=== PATIENT | female | born 1995 | race Caucasian/White ===

== ENCOUNTER 2024-10-22 16:48 | Outpatient (RCR) | payer OTHER, SELFPAY ==
[2024-10-22 17:55] VITALS: PULSE 85
== END 2025-01-20 23:59 | disposition home or self-care (01) ==
LOC: ANHOBOP 16:48
PROVIDERS: Visit Provider Obstetrics & Gynecology
DX: O36.8190 Decreased fetal movements, unspecified trimester, not applicable or unspecified (principal)
CPT/HCPCS: 59025

== ENCOUNTER 2025-01-10 20:24 | Outpatient (CLI) | payer OTHER, SELFPAY ==
[2025-01-10 21:19] VITALS: BMI 35.2
[2025-01-12 11:19] LABS: Total Protein Urine Random 12 mg/dL
[2025-01-12 11:20] LABS: Creatinine 24 Hour Urine 2.1 gm/24 (0.8-1.8); Specific Gravity Ur 1.009; Total Protein Urine 24 Hr 492 mg/24hr (28-141); Total Volume 24 Hour Urine 4100 ml
[2025-01-12 11:22] LABS: Total Volume 24 Hour Urine 4100 ml
== END 2025-01-10 20:25 | disposition home or self-care (01) ==
LOC: ANHOBOP 21:10
PROVIDERS: Visit Provider Obstetrics & Gynecology
DX: Z34.90 Encounter for supervision of normal pregnancy, unspecified, unspecified trimester (principal); Z3A.00 Weeks of gestation of pregnancy not specified
CPT/HCPCS: 81050; 82570; 84156

== ENCOUNTER 2025-02-03 10:04 | Outpatient (RCR) | payer OTHER, SELFPAY ==
[2025-01-06 17:20] LABS: Hematocrit 37.5 % (37.0-47.0); Hemoglobin 12.8 g/dL (12.0-15.0); Immature Granulocyte Percent A 1.9 % (0-0.5); Lymphocytes Absolute Auto 2.32 K/mm3 (0.9-3.2); Mean Corpuscular HGB Conc 34.1 g/dl (32-36); Mean Corpuscular Hemoglobin 31.4 pg (26-34); Mean Corpuscular Volume 91.9 fl (80-100); Nucleated Red Blood Cells Absolute Auto 0.000 K/mm3 (0.0-0.012); Nucleated Red Blood Cells Perc 0.0 % (0.0-0.2); Platelet Count Result 188 k/mm3 (150-375); Red Blood Count 4.08 M/mm3 (4.2-5.4); White Blood Count 10.5 K/mm3 (4.5-10.0)
[2025-01-06 17:27] VITALS: BP 134/73; PULSE 88
[2025-01-06 17:27] LABS: Total Protein Urine Random 10 mg/dL; Ur Ttl Prot Creatinine Ratio 0.12 mg/mg (0-0.20)
[2025-01-06 17:38] LABS: Alanine Aminotransferase 24 U/L (6-35); Albumin Level 3.6 g/dL (3.5-5.1); Alkaline Phosphatase 113 U/L (38-126); Anion Gap 4 mmol/L (4-12); Aspartate Amino Transferase 28 U/L (14-36); Bilirubin,Total 0.3 mg/dL (0.2-1.3); Blood Urea Nitrogen 9 mg/dL (7-17); Calcium 9.2 mg/dL (8.4-10.2); Carbon Dioxide 21 mmol/L (22-30); Chloride 107 mmol/L (98-107); Estimated Glomerular Filt Rate > 60; Glucose 89 mg/dL (65-110); Potassium 4.0 mmol/L (3.4-5.0); Sodium 132 mmol/L (137-145); Total Protein 6.6 g/dL (6.3-8.2); Uric Acid 4.0 mg/dL (2.5-7.5)
[2025-01-06 17:43] LABS: Add Urine Microscopic? YES; Appearance Urine Cloudy (Clear); Glucose Urine UA Negative (Negative); Leukocyte Esterase Ur 2+ LEU/UL (Negative); Need Manual Microscopic Reviewed; Nitrate Urine Negative (Negative); Non Pathogenic Casts 0-2; Specific Grav Ur 1.014 (1.001-1.035)
[2025-01-09 16:26] VITALS: BP 126/77; PULSE 84
[2025-01-09 16:26] LABS: Hematocrit 38.9 % (37.0-47.0); Hemoglobin 13.1 g/dL (12.0-15.0); Immature Granulocyte Percent A 2.0 % (0-0.5); Lymphocytes Absolute Auto 2.22 K/mm3 (0.9-3.2); Mean Corpuscular HGB Conc 33.7 g/dl (32-36); Mean Corpuscular Hemoglobin 31.9 pg (26-34); Mean Corpuscular Volume 94.6 fl (80-100); Nucleated Red Blood Cells Absolute Auto 0.000 K/mm3 (0.0-0.012); Nucleated Red Blood Cells Perc 0.0 % (0.0-0.2); Platelet Count Result 199 k/mm3 (150-375); Red Blood Count 4.11 M/mm3 (4.2-5.4); White Blood Count 12.2 K/mm3 (4.5-10.0)
[2025-01-09 16:36] LABS: Alanine Aminotransferase 20 U/L (6-35); Albumin Level 3.7 g/dL (3.5-5.1); Alkaline Phosphatase 121 U/L (38-126); Anion Gap 6 mmol/L (4-12); Aspartate Amino Transferase 29 U/L (14-36); Bilirubin,Total 0.3 mg/dL (0.2-1.3); Blood Urea Nitrogen 6 mg/dL (7-17); Calcium 8.6 mg/dL (8.4-10.2); Carbon Dioxide 24 mmol/L (22-30); Chloride 102 mmol/L (98-107); Estimated Glomerular Filt Rate > 60; Glucose 95 mg/dL (65-110); Potassium 3.5 mmol/L (3.4-5.0); Sodium 132 mmol/L (137-145); Total Protein 6.9 g/dL (6.3-8.2); Uric Acid 4.4 mg/dL (2.5-7.5)
[2025-01-09 16:39] LABS: Add Urine Microscopic? NO; Appearance Urine Clear (Clear); Glucose Urine UA Negative (Negative); Leukocyte Esterase Ur Negative LEU/UL (Negative); Nitrate Urine Negative (Negative); Specific Grav Ur 1.003 (1.001-1.035)
[2025-01-09 16:57] LABS: Total Protein Urine Random 13 mg/dL; Ur Ttl Prot Creatinine Ratio 1.09 mg/mg (0-0.20)
--- NOTE | 2025-01-09 17:35 | PC.NURSE ---
Called Dr. Alexandra with lab results. 24hr urine ordered and pt given instructions. June D/C home.
[2025-01-13 15:44] LABS: Hematocrit 39.0 % (37.0-47.0); Hemoglobin 13.4 g/dL (12.0-15.0); Immature Granulocyte Percent A 2.1 % (0-0.5); Lymphocytes Absolute Auto 1.38 K/mm3 (0.9-3.2); Mean Corpuscular HGB Conc 34.4 g/dl (32-36); Mean Corpuscular Hemoglobin 31.6 pg (26-34); Mean Corpuscular Volume 92.0 fl (80-100); Nucleated Red Blood Cells Absolute Auto 0.000 K/mm3 (0.0-0.012); Nucleated Red Blood Cells Perc 0.0 % (0.0-0.2); Platelet Count Result 173 k/mm3 (150-375); Red Blood Count 4.24 M/mm3 (4.2-5.4); White Blood Count 8.8 K/mm3 (4.5-10.0)
[2025-01-13 15:58] LABS: Add Urine Microscopic? YES; Appearance Urine Cloudy (Clear); Glucose Urine UA Negative (Negative); Leukocyte Esterase Ur Trace LEU/UL (Negative); Need Manual Microscopic Reviewed; Nitrate Urine Negative (Negative); Non Pathogenic Casts 0-2; Specific Grav Ur 1.005 (1.001-1.035)
[2025-01-13 15:59] LABS: Alanine Aminotransferase 32 U/L (6-35); Albumin Level 3.6 g/dL (3.5-5.1); Alkaline Phosphatase 127 U/L (38-126); Anion Gap 5 mmol/L (4-12); Aspartate Amino Transferase 34 U/L (14-36); Bilirubin,Total 0.3 mg/dL (0.2-1.3); Blood Urea Nitrogen 6 mg/dL (7-17); Calcium 9.1 mg/dL (8.4-10.2); Carbon Dioxide 20 mmol/L (22-30); Chloride 108 mmol/L (98-107); Estimated Glomerular Filt Rate > 60; Glucose 95 mg/dL (65-110); Potassium 3.8 mmol/L (3.4-5.0); Sodium 133 mmol/L (137-145); Total Protein 6.8 g/dL (6.3-8.2); Uric Acid 4.3 mg/dL (2.5-7.5)
[2025-01-13 16:01] VITALS: BP 115/74; PULSE 97
[2025-01-13 16:01] LABS: Total Protein Urine Random 20 mg/dL; Ur Ttl Prot Creatinine Ratio 0.77 mg/mg (0-0.20)
[2025-01-21 14:52] VITALS: BP 127/78; PULSE 79
[2025-01-27 17:10] VITALS: BP 126/73; PULSE 89
--- NOTE | ~2025-02-03 | US_ITS ---
EXAMINATION: Ultrasound OB limited, biophysical profile score: DATE: 01/06/2025. INDICATION: 36+ weeks gestational age with hypertension. TECHNIQUE: Transabdominal ultrasound aspart biophysical profile protocol including breathing, movement, tone and amniotic fluid pocket were obtained. COMPARISON: Previous exam dated 12/31/2024 FINDINGS: Live fetus, 36+ weeks of gestational age in cephalic presentation. Anterior placenta is noted. Cervix was not evaluated. Biophysical profile score of 8/8 with 2 points each for breathing, movement, tone and amniotic fluid pocket. Amniotic fluid index of 15.2 cm. IMPRESSION: 1. Limited OB ultrasound with biophysical profile score of 8/8. Fluid index of 15.2 cm. 2. 36+ weeks of gestational age cephalic presentation. Reviewed, dictated and finalized at location T. D SECURITY ARCHITECT
--- NOTE | ~2025-02-03 | US_ITS ---
EXAMINATION: US OB BPP wo non-stress, 01/09/2025 16:48 ACADEMY EDUCATION DIRECTOR HISTORY: Elevated BP Comparison: None Technique: [place]-scale and color Doppler images were obtained. Findings: Single live intrauterine in longitudinal lie and vertex presentation, heart rate 135. The placenta is located anteriorly, small probable placental grade 1.5 x 0.6 x 0.5 cm, no abnormal flow KARIN 16.6, BPP 8/8 Cervical length 5.9 cm. IMPRESSION: Single live intrauterine detailed above Reviewed, dictated and finalized at location P. EMY EDUCATION DIRECTOR
--- NOTE | ~2025-02-03 | US_ITS ---
US OB BPP wo non-stress INDICATION: Elevated BP . COMPARISON: None. TECHNIQUE: Transabdominal limited obstetric sonogram and biophysical profile were performed. TRANSABDOMINAL LIMITED OBSTETRIC SONOGRAM: There is a single intrauterine with a vertex lie, anterior placenta, and KARIN of 18.6 cm. heart motion at a rate of 131 bpm is documented. BPP: The biophysical profile score, assessing breathing movement, gross body movement, tone and qualitative amniotic fluid volume is 8/8. IMPRESSION: Single intrauterine in vertex presentation with heart tones measuring 131 bpm. Biophysical profile score 8/8. Reviewed, dictated and finalized at location S. ATIENT PHARMACY MANAGER IMPRESSION: Single intrauterine in vertex presentation with heart tones me asuring 131 bpm. Biophysical profile score 8/8.
[2025-02-03 10:30] VITALS: BP 131/77; PULSE 91
== END 2025-02-11 10:21 | disposition other institution (70) ==
LOC: ANHOBOP 10:04
PROVIDERS: Visit Provider Obstetrics & Gynecology
DX: O26.893 Other specified pregnancy related conditions, third trimester (principal); R03.0 Elevated blood-pressure reading, without diagnosis of hypertension; Z3A.36 36 weeks gestation of pregnancy; Z3A.37 37 weeks gestation of pregnancy; Z3A.38 38 weeks gestation of pregnancy; Z3A.39 39 weeks gestation of pregnancy; O48.0 Post-term pregnancy; Z3A.40 40 weeks gestation of pregnancy
CPT/HCPCS: 36415; 59025; 76819; 80053; 81001; 81003; 82570; 84156; 84550; 85025; 87086